=== PATIENT | female | born 1985 | race African-American/Black ===

== ENCOUNTER 2022-09-27 09:30 | Outpatient (CLI) | payer OTHER | END 2022-09-27 09:31 | disposition home or self-care (01) | LOC: BICMAMMO 09:30 | PROVIDERS: ATTEND Student in an Organized Health Care Education/Training Program | DX: R22.31 Localized swelling, mass and lump, right upper limb (principal); N63.23 Unspecified lump in the left breast, lower outer quadrant; N60.01 Solitary cyst of right breast | CPT/HCPCS: 77066; G0279 ==

== ENCOUNTER 2024-06-25 12:18 | Outpatient (CLI) | payer OTHER | END 2024-06-25 12:19 | disposition home or self-care (01) | LOC: BICMAMMO 12:18 | PROVIDERS: ATTEND Advanced Practice Midwife | DX: Z12.31 Encounter for screening mammogram for malignant neoplasm of breast (principal); Z91.89 Other specified personal risk factors, not elsewhere classified | CPT/HCPCS: 77063; 77067 ==

== ENCOUNTER 2025-08-07 14:57 | Outpatient (CLI) | payer OTHER | END 2025-08-07 14:58 | disposition home or self-care (01) | LOC: BICMAMMO 14:57 | PROVIDERS: ATTEND Family Medicine | DX: Z12.31 Encounter for screening mammogram for malignant neoplasm of breast (principal); Z91.89 Other specified personal risk factors, not elsewhere classified | CPT/HCPCS: 77063; 77067 ==